=== PATIENT | female | born 1960 | race African-American/Black ===

== ENCOUNTER 2017-07-19 14:30 | Day surgery (SDC) | payer MEDICARE, OTHER ==
[2017-07-19] MEDS ORDERED: PROPOFOL 80 ML (17:42)
[2017-07-19] MEDS ORDERED: LIDOCAINE 100 MG SYRINGE (17:42)
[2017-07-19] MEDS ORDERED: PROPOFOL 20 ML (17:51)
== END 2017-07-19 18:13 | disposition home or self-care (01) ==
LOC: GIL 14:30
DX: Z12.11 Encounter for screening for malignant neoplasm of colon (principal); D12.6 Benign neoplasm of colon, unspecified; K64.8 Other hemorrhoids; I10 Essential (primary) hypertension; E03.9 Hypothyroidism, unspecified; F17.200 Nicotine dependence, unspecified, uncomplicated; E66.9 Obesity, unspecified; Z68.32 Body mass index [BMI] 32.0-32.9, adult
CPT/HCPCS: 45380; 88305